=== PATIENT | male | born 1960 | race Caucasian/White ===

== ENCOUNTER → 2020-05-15 11:30 | Outpatient (CLI) | payer MEDICAID, SELFPAY ==
[2020-05-15 12:45] LABS: Chloride 97 mmol/L (98-107)
[2020-05-15 12:46] LABS: Potassium 4.7 mmoL/L (3.5-5.1); Sodium 135 mmol/L (136-145)
[2020-05-15 12:48] LABS: Alanine Aminotransferase 13 U/L (12-78); Alkaline Phosphatase 98 U/L (38-126); Anion Gap 10.7 mEq/L (5-15); Aspartate Amino Transferase 21 U/L (17-59); Bilirubin,Total 0.8 mg/dl (0.2-1.3); Blood Urea Nitrogen 23 mg/dl (9-20); Carbon Dioxide 32 mmol/L (22.0-30.0); Estimated Glomerular Filt Rate 76 ml/min (>60); GFR (African American) 92 ML/MIN (>60)
[2020-05-15 12:49] LABS: Albumin Level 3.4 g/dl (3.5-5.0); Albumin/Globulin Ratio 1.1 (1.1-1.8); Calcium 9.3 mg/dl (8.4-10.2); Cholesterol 165 mg/dl (140-200); Globulin 3.1 g/dL (1.3-3.2); Glucose 115 mg/dl (74-100); HDL Cholesterol 33 mg/dl (40-60); Total Protein,Serum 6.5 g/dl (6.3-8.2); Triglycerides 156 mg/dl (30-150); VLDL Cholesterol 31 mg/dL (0-40)
[2020-05-15 13:00] LABS: Direct LDL Cholesterol 111.47 mg/dL (100-129)
[2020-05-15 13:04] LABS: Basophils # 0.1 K/mm3 (0-0.2); Basophils % 0.6 % (0.1-2.0); Eosinophils # 0.3 K/mm3 (0.0-0.4); Eosinophils % 2.5 % (0.1-12.0); Hematocrit 49.6 % (42.0-52.0); Hemoglobin 15.4 g/dL (14.1-18.0); Lymphocytes # 1.6 K/mm3 (0.7-4.5); Lymphocytes % 15.1 % (10-50); Mean Corpuscular HGB Conc 31.1 g/dL (31.8-35.4); Mean Corpuscular Hemoglobin 26.5 pg (27.0-31.2); Monocytes # 0.6 K/mm3 (0.1-1.0); Monocytes % 5.9 % (1.7-9.3); Neutrophils % 75.9 % (37.0-80.0); Platelet Count 304 K/mm3 (142-424); Red Blood Count 5.83 M/mm3 (4.60-6.20); Red Cell Distribution Width 16.5 % (11.5-17.5); White Blood Count 10.6 K/mm3 (4.8-10.8)
[2020-05-15 13:08] LABS: T4 (Thyroxine) 10.2 ug/dl (5.53-11.0)
[2020-05-15 13:22] LABS: Thyroid Stimulating Hormone 3.67 uIU/mL (0.465-4.68)
[2020-05-15 13:58] LABS: Hemoglobin A1C 7.1 % (4.0-6.0)
== END ==
PROVIDERS: Visit Provider Nurse Practitioner Family
DX: E11.9 Type 2 diabetes mellitus without complications (principal); I10 Essential (primary) hypertension; E78.5 Hyperlipidemia, unspecified; Z79.84 Long term (current) use of oral hypoglycemic drugs
CPT/HCPCS: 36415; 80053; 80061; 83036; 84436; 84443; 85025

== ENCOUNTER → 2021-03-05 18:46 | Outpatient (CLI) | payer MEDICAID, SELFPAY ==
[2021-03-05 19:42] LABS: Basophils # 0.2 K/mm3 (0-0.2); Basophils % 1.5 % (0.1-2.0); Eosinophils # 0.3 K/mm3 (0.0-0.4); Eosinophils % 2.7 % (0.1-12.0); Hematocrit 48.3 % (42.0-52.0); Hemoglobin 15.7 g/dL (14.1-18.0); Lymphocytes # 1.5 K/mm3 (0.7-4.5); Lymphocytes % 13.9 % (10-50); Mean Corpuscular HGB Conc 32.4 g/dL (31.8-35.4); Mean Corpuscular Volume 86.4 fl (80-94); Mean Platelet Volume 9.4 fl (7.4-10.4); Monocytes # 0.7 K/mm3 (0.1-1.0); Monocytes % 6.3 % (1.7-9.3); Neutrophils # 8.1 K/mm3 (1.8-7.8); Neutrophils % 75.7 % (37.0-80.0); Platelet Count 263 K/mm3 (142-424); Red Blood Count 5.59 M/mm3 (4.60-6.20); Red Cell Distribution Width 16.8 % (11.5-17.5); White Blood Count 10.6 K/mm3 (4.8-10.8)
[2021-03-05 19:51] LABS: Alanine Aminotransferase 14 U/L (12-78); Albumin Level 3.6 g/dl (3.5-5.0); Albumin/Globulin Ratio 1.2 (1.1-1.8); Alkaline Phosphatase 110 U/L (38-126); Anion Gap 15.3 mEq/L (5-15); Aspartate Amino Transferase 19 U/L (17-59); Bilirubin,Total 0.7 mg/dl (0.2-1.3); Blood Urea Nitrogen 24 mg/dl (9-20); Calcium 8.7 mg/dl (8.4-10.2); Carbon Dioxide 31 mmol/L (22.0-30.0); Chloride 97 mmol/L (98-107); Cholesterol 157 mg/dl (140-200); Estimated Glomerular Filt Rate 68 ml/min (>60); GFR (African American) 82 ML/MIN (>60); Glucose 122 mg/dl (74-100); HDL Cholesterol 26 mg/dl (40-60); Potassium 4.3 mmoL/L (3.5-5.1); Sodium 139 mmol/L (136-145); Total Protein,Serum 6.6 g/dl (6.3-8.2); Triglycerides 129 mg/dl (30-150); VLDL Cholesterol 26 mg/dL (0-40)
[2021-03-05 20:02] LABS: Direct LDL Cholesterol 105.99 mg/dL (100-129)
[2021-03-05 20:08] LABS: 25-OH Vitamin D, Total 20.6 ng/mL (30-100)
[2021-03-05 20:11] LABS: T4 (Thyroxine) 9.5 ug/dl (5.53-11.0)
[2021-03-05 20:24] LABS: Hemoglobin A1C 8.1 % (4.0-6.0); Prostate Specific Ag Screen 0.4 ng/ml (0.0-4.0); Thyroid Stimulating Hormone 2.53 uIU/mL (0.465-4.68)
[2021-03-05 20:39] LABS: Microalbumin < 6.000 mg/L (0-16.7)
[2021-03-05 21:18] LABS: Creatinine,Urine Random 64 mg/dL (Not Estab.)
== END ==
PROVIDERS: Visit Provider Nurse Practitioner Family
DX: E11.9 Type 2 diabetes mellitus without complications (principal); Z79.84 Long term (current) use of oral hypoglycemic drugs; E55.9 Vitamin D deficiency, unspecified; Z12.5 Encounter for screening for malignant neoplasm of prostate
CPT/HCPCS: 80053; 80061; 82043; 82306; 82570; 83036; 84436; 84443; 85025; G0103

== ENCOUNTER → 2022-06-06 16:08 | Outpatient (CLI) | payer MEDICAID, SELFPAY ==
[2022-06-06 18:55] LABS: Basophils # 0.1 K/mm3 (0-0.2); Basophils % 0.8 % (0.1-2.0); Eosinophils # 0.3 K/mm3 (0.0-0.4); Eosinophils % 2.5 % (0.1-12.0); Hematocrit 50.4 % (42.0-52.0); Lymphocytes # 1.5 K/mm3 (0.7-4.5); Lymphocytes % 14.8 % (10-50); Mean Corpuscular HGB Conc 31.8 g/dL (31.8-35.4); Mean Corpuscular Hemoglobin 28.4 pg (27.0-31.2); Mean Corpuscular Volume 89.2 fl (80-94); Monocytes # 0.6 K/mm3 (0.1-1.0); Monocytes % 6.1 % (1.7-9.3); Neutrophils # 7.8 K/mm3 (1.8-7.8); Neutrophils % 75.8 % (37.0-80.0); Platelet Count 286 K/mm3 (142-424); Red Blood Count 5.64 M/mm3 (4.60-6.20); Red Cell Distribution Width 16.1 % (11.5-17.5); White Blood Count 10.3 K/mm3 (4.8-10.8)
[2022-06-06 19:15] LABS: Hemoglobin A1C 9.4 % (4.0-6.0)
[2022-06-06 19:30] LABS: Alanine Aminotransferase 19 U/L (12-78); Albumin Level 3.8 g/dl (3.5-5.0); Albumin/Globulin Ratio 1.3 (1.1-1.8); Alkaline Phosphatase 146 U/L (38-126); Anion Gap 16.1 mEq/L (5-15); Aspartate Amino Transferase 26 U/L (17-59); Bilirubin,Total 0.4 mg/dl (0.2-1.3); Blood Urea Nitrogen 28 mg/dl (9-20); Calcium 9.1 mg/dl (8.4-10.2); Carbon Dioxide 32 mmol/L (22.0-30.0); Chloride 93 mmol/L (98-107); Chol/HDL Ratio 5.9 (1-3.5); Cholesterol 159 mg/dl (140-200); Estimated Glomerular Filt Rate 68 ml/min (>60); GFR (African American) 82 ML/MIN (>60); Glucose 160 mg/dl (74-100); HDL Cholesterol 27 mg/dl (40-60); Potassium 4.1 mmoL/L (3.5-5.1); Sodium 137 mmol/L (136-145); Total Protein,Serum 6.8 g/dl (6.3-8.2); Triglycerides 140 mg/dl (30-150); VLDL Cholesterol 28 mg/dL (0-40)
[2022-06-06 19:43] LABS: Direct LDL Cholesterol 102.06 mg/dL (100-129)
[2022-06-06 19:48] LABS: 25-OH Vitamin D, Total 29.9 ng/mL (30-100)
[2022-06-06 20:02] LABS: Prostate Specific Ag Screen 0.3 ng/ml (0.0-4.0); Thyroid Stimulating Hormone 2.02 uIU/mL (0.465-4.68)
== END ==
PROVIDERS: PCP Physician Assistant; Visit Provider Physician Assistant
DX: E11.9 Type 2 diabetes mellitus without complications (principal); E55.9 Vitamin D deficiency, unspecified; Z79.84 Long term (current) use of oral hypoglycemic drugs; Z12.5 Encounter for screening for malignant neoplasm of prostate
CPT/HCPCS: 80053; 80061; 82306; 83036; 84443; 85025; G0103

== ENCOUNTER → 2022-11-04 13:32 | Outpatient (CLI) | payer MEDICAID, SELFPAY ==
[2022-11-04 18:14] LABS: Basophils # 0.1 K/mm3 (0-0.2); Basophils % 0.5 % (0.1-2.0); Eosinophils # 0.3 K/mm3 (0.0-0.4); Eosinophils % 2.8 % (0.1-12.0); Hematocrit 50.7 % (42.0-52.0); Lymphocytes % 18.1 % (10-50); Mean Corpuscular HGB Conc 31.5 g/dL (31.8-35.4); Mean Corpuscular Hemoglobin 26.7 pg (27.0-31.2); Mean Corpuscular Volume 84.7 fl (80-94); Mean Platelet Volume 9.6 fl (7.4-10.4); Monocytes # 0.7 K/mm3 (0.1-1.0); Monocytes % 6.3 % (1.7-9.3); Neutrophils # 7.9 K/mm3 (1.8-7.8); Neutrophils % 72.3 % (37.0-80.0); Platelet Count 298 K/mm3 (142-424); Red Blood Count 5.99 M/mm3 (4.60-6.20); Red Cell Distribution Width 16.2 % (11.5-17.5); White Blood Count 10.9 K/mm3 (4.8-10.8)
[2022-11-04 18:23] LABS: Alanine Aminotransferase 16 U/L (12-78); Albumin Level 3.8 g/dl (3.5-5.0); Albumin/Globulin Ratio 1.3 (1.1-1.8); Alkaline Phosphatase 102 U/L (38-126); Anion Gap 7.7 mEq/L (5-15); Aspartate Amino Transferase 23 U/L (17-59); Bilirubin,Total 0.6 mg/dl (0.2-1.3); Blood Urea Nitrogen 21 mg/dl (9-20); Carbon Dioxide 32 mmol/L (22.0-30.0); Chloride 98 mmol/L (98-107); Chol/HDL Ratio 5.9 (1-3.5); Cholesterol 159 mg/dl (140-200); Estimated Glomerular Filt Rate 68 ml/min (>60); GFR (African American) 82 ML/MIN (>60); Glucose 85 mg/dl (74-100); HDL Cholesterol 27 mg/dl (40-60); Potassium 3.7 mmoL/L (3.5-5.1); Sodium 134 mmol/L (136-145); Total Protein,Serum 6.8 g/dl (6.3-8.2); Triglycerides 149 mg/dl (30-150); VLDL Cholesterol 30 mg/dL (0-40)
[2022-11-04 18:35] LABS: Direct LDL Cholesterol 109.22 mg/dL (100-129)
[2022-11-04 18:39] LABS: 25-OH Vitamin D, Total 38.8 ng/mL (30-100); Hemoglobin A1C 10.2 % (4.0-6.0)
[2022-11-04 18:52] LABS: Thyroid Stimulating Hormone 2.44 uIU/mL (0.465-4.68)
== END ==
PROVIDERS: PCP Physician Assistant; Visit Provider Physician Assistant
DX: E11.9 Type 2 diabetes mellitus without complications (principal); E66.9 Obesity, unspecified; Z68.41 Body mass index [BMI] 40.0-44.9, adult; Z79.84 Long term (current) use of oral hypoglycemic drugs
CPT/HCPCS: 80053; 80061; 82306; 83036; 84443; 85025

== ENCOUNTER 2024-04-20 11:14 | Outpatient (CLI) | payer MEDICAID, SELFPAY ==
[2024-04-20 18:16] LABS: Basophils # 0.1 K/mm3 (0-0.2); Basophils % 0.5 % (0.1-2.0); Eosinophils # 0.3 K/mm3 (0.0-0.4); Eosinophils % 2.8 % (0.1-12.0); Hematocrit 51.8 % (42.0-52.0); Hemoglobin 15.4 g/dL (14.1-18.0); Lymphocytes # 1.7 K/mm3 (0.7-4.5); Lymphocytes % 14.9 % (10-50); Mean Corpuscular HGB Conc 29.6 g/dL (31.8-35.4); Mean Corpuscular Hemoglobin 26.3 pg (27.0-31.2); Mean Corpuscular Volume 88.6 fl (80-94); Mean Platelet Volume 9.4 fl (7.4-10.4); Monocytes # 0.7 K/mm3 (0.1-1.0); Monocytes % 6.1 % (1.7-9.3); Neutrophils # 8.5 K/mm3 (1.8-7.8); Neutrophils % 75.7 % (37.0-80.0); Platelet Count 317 K/mm3 (142-424); Red Blood Count 5.85 M/mm3 (4.60-6.20); Red Cell Distribution Width 16.2 % (11.5-17.5); White Blood Count 11.3 K/mm3 (4.8-10.8)
[2024-04-20 19:06] LABS: Alanine Aminotransferase 23 U/L (12-78); Albumin Level 3.8 g/dl (3.5-5.0); Albumin/Globulin Ratio 1.3 (1.1-1.8); Alkaline Phosphatase 91 U/L (38-126); Aspartate Amino Transferase 24 U/L (17-59); Bilirubin,Total 0.6 mg/dl (0.2-1.3); Blood Urea Nitrogen 25 mg/dl (9-20); Calcium 9.5 mg/dl (8.4-10.2); Chloride 99 mmol/L (98-107); Chol/HDL Ratio 5.6 (1-3.5); Cholesterol 163 mg/dl (140-200); Estimated Glomerular Filt Rate 67 ml/min (>60); GFR (African American) 82 ML/MIN (>60); Glucose 130 mg/dl (74-100); HDL Cholesterol 29 mg/dl (40-60); Sodium 136 mmol/L (136-145); Total Protein,Serum 6.8 g/dl (6.3-8.2); Triglycerides 150 mg/dl (30-150); VLDL Cholesterol 30 mg/dL (0-40)
[2024-04-20 19:11] LABS: Potassium 4.1 mmoL/L (3.5-5.1)
[2024-04-20 19:16] LABS: Creatinine,Urine Random 38 mg/dL (Not Estab.); Hemoglobin A1C 7.7 % (4.0-6.0); Microalbumin < 6.000 mg/L (0-16.7)
[2024-04-20 19:19] LABS: HIV (1&2) Antibody Rapid NONREACTIVE (NONREACTIVE)
[2024-04-20 19:24] LABS: Direct LDL Cholesterol 105.15 mg/dL (100-129)
[2024-04-20 19:36] LABS: Prostate Specific Ag Screen 0.6 ng/ml (0.0-4.0)
[2024-04-20 20:03] LABS: Anion Gap 9.1 mEq/L (5-15); Carbon Dioxide 32 mmol/L (22.0-30.0)
[2024-04-22 10:15] LABS: HCV Ab Non Reactive (Non Reactive)
== END 2024-04-20 23:59 | disposition home or self-care (01) ==
LOC: LAB.DROPOF 04-21 11:15
PROVIDERS: PCP Family Medicine; Visit Provider Family Medicine
DX: L97.929 Non-pressure chronic ulcer of unspecified part of left lower leg with unspecified severity (principal); Z87.891 Personal history of nicotine dependence; E11.40 Type 2 diabetes mellitus with diabetic neuropathy, unspecified; Z99.81 Dependence on supplemental oxygen; E78.2 Mixed hyperlipidemia; I10 Essential (primary) hypertension; E11.59 Type 2 diabetes mellitus with other circulatory complications; I49.9 Cardiac arrhythmia, unspecified; E78.5 Hyperlipidemia, unspecified; E11.8 Type 2 diabetes mellitus with unspecified complications; L03.90 Cellulitis, unspecified; R26.89 Other abnormalities of gait and mobility; Z79.84 Long term (current) use of oral hypoglycemic drugs; Z79.85 Long-term (current) use of injectable non-insulin antidiabetic drugs
CPT/HCPCS: 80053; 80061; 82043; 82570; 83036; 85025; 86803; 87389; G0103

== ENCOUNTER 2025-01-20 12:00 | Outpatient (CLI) | payer MEDICAID, SELFPAY ==
[2025-01-20 18:28] LABS: Basophils # 0.1 K/mm3 (0-0.2); Basophils % 0.5 % (0.1-2.0); Eosinophils # 0.3 Kmm3 (0.0-0.4); Eosinophils % 2.8 % (0.1-12.0); Hematocrit 51.6 % (42.0-52.0); Hemoglobin 14.9 g/dL (14.1-18.0); Immature Granulocytes # 0.03 10^3uL; Immature Granulocytes % 0.3 %; Lymphocytes # 1.7 K/mm3 (0.7-4.5); Lymphocytes % 17.1 % (10-50); Mean Corpuscular HGB Conc 28.9 g/dL (31.8-35.4); Mean Corpuscular Hemoglobin 23.7 pg (27.0-31.2); Mean Corpuscular Volume 82.2 fl (80-94); Mean Platelet Volume 11.8 fl (7.4-10.4); Monocytes # 0.7 K/mm3 (0.1-1.0); Monocytes % 6.9 % (1.7-9.3); Neutrophils % 72.4 % (37.0-80.0); Nucleated Red Blood Cells # 0 10^3/uL; Nucleated Red Blood Cells % 0 %; Platelet Count 291 K/mm3 (142-424); Red Blood Count 6.28 M/mm3 (4.60-6.20); Red Cell Distribution Width 19.6 % (11.5-17.5); Red Cell Distribution Width-SD 54.2 fL; White Blood Count 9.7 K/mm3 (4.8-10.8)
[2025-01-20 19:16] LABS: Alanine Aminotransferase 16 U/L (12-78); Albumin Level 3.9 g/dl (3.5-5.0); Albumin/Globulin Ratio 1.2 (1.1-1.8); Alkaline Phosphatase 94 U/L (38-126); Anion Gap 14.9 mEq/L (5-15); Aspartate Amino Transferase 32 U/L (17-59); Bilirubin,Total 1.1 mg/dl (0.2-1.3); Blood Urea Nitrogen 19 mg/dl (9-20); Calcium 9.8 mg/dl (8.4-10.2); Carbon Dioxide 32 mmol/L (22.0-30.0); Chloride 93 mmol/L (98-107); Chol/HDL Ratio 6.4 (1-3.5); Cholesterol 159 mg/dl (140-200); Estimated Glomerular Filt Rate 85 ml/min (>60); GFR (African American) 103 ML/MIN (>60); Globulin 3.3 g/dL (1.3-3.2); Glucose 126 mg/dl (74-100); HDL Cholesterol 25 mg/dl (40-60); Potassium 4.9 mmoL/L (3.5-5.1); Sodium 135 mmol/L (136-145); Total Protein,Serum 7.2 g/dl (6.3-8.2); Triglycerides 166 mg/dl (30-150); VLDL Cholesterol 33 mg/dL (0-40)
[2025-01-20 19:24] LABS: Hemoglobin A1C 11.2 % (4.0-6.0)
[2025-01-20 19:26] LABS: Direct LDL Cholesterol 99.54 mg/dL (100-129)
--- OUTSIDE RECORDS SUMMARY | 2025-01-21 10:20 | XMS_ITS | Clinical Summary ---
Author Organization [facility] Address [address], [place] [phone] Phone Care Team Providers Care Document Design Specialist Name Role Phone Chanell Tam MD Unavailable Allergies Active Allergy Reactions Criticality Noted Date Comments Cephalexin Hives High 01/25/2020 Penicillins Swelling High Childhood. Medications aspirin 81 mg Oral Tablet, Delayed Release (E.C.) Take by mouth daily. Active Cane [facility] DeviceIndications: Coronary artery disease involving [place] coronary artery of ot[place] heart without angina pectoris,History of DVT (deep vein thrombosis),Primar y osteoarthritis involving multiple joints Wide based Quad cane 1 Device 8 Active Blood-Glucose Meter (FREESTYLE LITE METER) [facility] KitIndications:Typ e 2 diabetes mellitus without complication, without long-term current use of insulin (HCC),Hyperlipidem ia associated with type 2 diabetes mellitus (HCC),Hypertension associated with diabetes (HCC) Check blood sugar two times daily, E11.65 1 Kit 9 Active clotrimazole-betam ethasone (LOTRISONE) Top CreamIndications:Y east dermatitis APPLY TOPICALLY NEEDED 15 g 9 Active ONETOUCH VERIO [facility] StripIndications:T ype 2 diabetes mellitus without complication, without long-term current use of insulin (HCC) 1 Strip by [facility].(Non-Norm g; Combo Route) route daily. 50 Strip 11 9 Active ONETOUCH DELICA PLUS LANCET 33 gauge [facility] MiscIndications:Ty pe 2 diabetes mellitus without complication, without long-term current use of insulin (HCC) 1 Each by [facility].(Non-Norm g; Combo Route) route daily. 50 Each 11 9 Active fluticasone propionate (FLONASE) 50 mcg/actuation Nasl [place], SuspensionIndicati ons:Acute non-recurrent maxillary sinusitis,Seasonal allergic rhinitis, unspecified trigger 2 Sprays by Nasal route daily. 1 Bottle 0 Active hydroCHLOROthiazid e (HYDRODIURIL) 25 mg Oral TabletIndications: Dependent edema TAKE 1 TABLET BY MOUTH DAILY 30 Tab 5 0 Active glimepiride (AMARYL) 4 mg Oral TabletIndications: Type 2 diabetes mellitus without complication, without long-term current use of insulin (HCC) Take 1 Tab by mouth 2 times daily. 180 Tab 0 Active lisinopriL (PRINIVIL;ZESTRIL) 10 mg Oral TabletIndications: Coronary artery disease involving [place] coronary artery of [place] heart without angina pectoris,Essential hypertension Take 1 Tab by mouth daily. 90 Tab 0 Active ertugliflozin (STEGLATRO) 15 mg Oral TabletIndications: Type 2 diabetes mellitus without complication, without long-term current use of insulin (HCC) Take 15 mg by mouth daily. 90 Tab 0 Active atorvastatin (LIPITOR) 40 mg Oral TabletIndications: Hyperlipidemia associated with type 2 diabetes mellitus (HCC) Take 1 Tab by mouth every evening. 90 Tab 0 Active nitroGLYCERIN (NITROSTAT) 0.4 mg SL Tablet, SublingualIndicati ons:Coronary artery disease involving ot[place] coronary artery of [place] heart without angina pectoris Place 1 Tab under the tongue every 5 minutes as needed for Chest pain. 12 Tab 1 0 Active SITagliptin-metFOR MIN (JANUMET XR) 50-1,000 mg Oral Tab, Multiphasic Release 24 hrIndications:Type 2 diabetes mellitus without complication, without long-term current use of insulin (HCC) Take 1 Tab by mouth 2 times daily. 180 Tab 0 Active omeprazole (PRILOSEC) 40 mg Oral Capsule, Delayed Release(E.C.)Indic ations:Gastroesoph ageal reflux disease without esophagitis Take 1 Cap by mouth daily. 90 Cap 0 Active torsemide (DEMADEX) 10 mg Oral TabletIndications: Ischemic cardiomyopathy Take 1 Tab by mouth daily. 90 Tab 0 Active buPROPion (WELLBUTRIN XL) 150 mg Oral Tablet Sustained Release 24 hrIndications:Sabina r depressive disorder, recurrent episode, mild Take 1 Tab by mouth every morning. 30 Tab 2 0 Active XARELTO 20 mg Oral TabletIndications: History of atrial fibrillation,Histo ry of DVT (deep vein thrombosis),PAF (paroxysmal atrial fibrillation) ([facility]) TAKE 1 TABLET BY MOUTH DAILY WITH BREAKFAST 30 Tab 3 0 Active montelukast (SINGULAIR) 10 mg Oral TabletIndications: COPD, mild ([facility]) TAKE ONE TABLET BY MOUTH AT BEDTIME 90 Tab 1 Active PROAIR HFA 90 mcg/actuation [place]hl HFA Aerosol InhalerIndications :COPD exacerbation ([facility]) INHALE 2 PUFFS BY MOUTH EVERY 4 HOURS NEEDED FOR WHEEZING 8.5 g 1 Active sotaloL (BETAPACE) 80 mg Oral TabletIndications: PAF (paroxysmal atrial fibrillation) ([facility]) Take 1 Tablet by mouth 2 times daily. 60 Tablet 2 Active Active Problems Patient Care Coordination No te Formatting of this note migh t be different from the original. Wears oxygen at 2 L / min all the time. HCC audit completed by Unique Hallman RN on 05/03/2020. Care gap audit completed by Jenn Barrett RN on 05/22/2020. Upon review, this patient has open gaps for colorectal cancer screening Microalbumin. As of this date, this patient is due Problem Noted Date Diagnosed Date COPD, moderate 03/02/2019 Type 2 diabetes mellitus without complication Hyperlipidemia associated with type 2 diabetes m ellitus 04/10/2017 Seasonal allergic rhinitis 05/23/2016 Gastroesophageal reflux disease without esophagi tis 01/16/2016 PAF (paroxysmal atrial fibrillation) 01/16/2016 Obesity, morbid, BMI 50 or higher 12/18/2015 Primary osteoarthritis involving multiple joints 10/11/2015 Hypertension associated with diabetes 09/21/2015 CAD (coronary artery disease), ot[place] coronary a rtery 08/25/2014 Cardiomyopathy 08/25/2014 History of DVT (deep vein thrombosis) 08/25/2014 Resolved Problems Problem Noted Date Diagnosed Date Resolved Date Tobacco abuse 02/02/2018 05/01/2018 Seasonal allergies 06/21/2015 6 DM (diabetes mellitus) 08/26/201401/15 HTN (hypertension) 08/25/2014 6 Immunizations Immunization Administration Dates Next Due Influenza Vaccine Quadrivalent PF 04/29/2017,,06/14/2015 Influenza Virus Vaccine Quad rivalant, Flublok 06/11/2019,05/01/2018 Pneumococcal Conjugate Vaccine 13 Valent 017 Pneumococcal Polysaccharide 23 Valent 02/02/2018 Surgical History Surgery Date Site/Laterality Comments CARDIAC SURGERY 12/2013 CABG x 3 Medical History Medical History Date Comments COPD (chronic obstructive pulmonary disease) ([facility] C) Asthma Hypertension Unspecified sleep apnea CAD (coronary artery disease) Hyperlipidemia Heartburn Osteoarthritis Diabetes mellitus (HCC) Atrial fibrillation (HCC) Family History * Patient is adopted Relation Name Status Comments Father Other Mother Other Social History Tobacco Use Types Packs/Day Years Used Date Smoking Tobacco: Some Days Cigarettes Smokeless Tobacco: Never Tobacco Cessation:Counseling Given: Yes Alcohol Use Standard Drinks/Week Comments Yes 0 (1 standard drink = 0.6 oz pur e alcohol) AUDIT-C Answer Date Recorded Frequency of Alcohol Consumption Monthly or less 03/02/2020 Average Number of Drinks 1 or 2 020 Frequency of Binge Drinking Never 12/2019 PHQ-2 Answer Date Recorded PHQ-2 Score 4 03/02/2020 Sexually Active Control Partners Comments Not Currently Female Sex and Gender Information Value Date Recorded Sex Assigned at Not on file Legal Sex Male 11:26 AM EST Gender Identity Not on file Sexual Orientation Not on file Obstetrics History Last Filed Vital Signs Vital Sign Reading Time Taken Comments Blood Pressure 104/70 03/02/2020 1:18 PM EDT Pulse 70 03/02/2020 1:18 PM EDT Temperature 36.6 C (97.9 F) 03/02/2020 1:18 PM EDT Respiratory Rate 20 03/02/2020 1:18 PM EDT Oxygen Saturation 96% 03/02/2020 1:18 PM EDT Inhaled Oxygen Concentration - - Weight 133.4 kg (294 lb) 03/02/2020 1:18 PM EDT Height 167.6 cm (5' 6 ) 03/02/2020 1:18 PM EDT Body Mass Index 47.45 03/02/2020 1:18 PM EDT Plan of Treatment Health Maintenance Due Date Last Done Comments DTaP/TDaP/Td (1 - Tdap) 01/26/1979 Cologuard 01/26/2005 Colon Cancer Screening 01/26/2005 Colonoscopy 01/26/2005 FIT 01/26/2005 Sigmoidoscopy 01/26/2005 Virtual Colonography 01/26/2005 Zoster (1 of 2) 01/26/2010 Kidney Health: uACR 11/24/2019 11/23/2018, 02/06/2018, 04/10/2017, Additional history exists RSV or 60+ (1 - Risk 60-74 years 1-dose series) 2020 Kidney Health: eGFR 07/22/2020 07/22/2019, 11/23/2018, 02/06/2018, Additional history exists Lipids 07/22/2020 07/22/2019, 10/27, 08/26/2017, Additional history exists Hemoglobin A1c 09/02/2020 03/02/2020, 06/28, 11/23/2018, Additional history exists Annual Wellness Exam 09/27/2020 09/28/2019, 02/02/2018, 11/07/2016 (Previously completed), Additional history exists Diabetic Eye Exam 09/27/2021 09/28/2019 Pneumococcal Vaccine 50+ (3 of 3 - PCV20 or PCV21) 02/02/2023 02/02/2018, 04/29/2017 COVID-19 Vaccine ( - season) 2024 Influenza Vaccine (Season Ended) 2025 06/11/2019, 05/01/2018, 05/01/2018, Additional history exists Hepatitis C Screening Completed 11/07/2016 Hepatitis B Vaccine Aged Out No longe r eligible based on patient's age to complete this topic Meningococcal B Vaccine Aged Out No l onger eligible based on patient's age to complete this topic Goals Goal Patient Goal Type Associated Problems Recent Progress Patient-Stated? Author Blood Pressure < 140/90 Blood Pressure 104/70(2019 1:18 PM EDT) No Ann-Marie Diehl RMA BMI (Calculated) < 30 General 47.6(03/02/20 20 1:18 PM EDT) No Ann-Marie Diehl RMA Eat better, exercise, reach an ideal body weight General No Estephanie Charles RMA Bring all medicines in the original pharmacy bottle to all doctor visits Lifestyle On track( 016 1:58 PM EDT) No Haley Bedoya, RN Note: Pt vu Check fasting glucose daily and document Lifestyle On track( 016 1:58 PM EDT) No Haley Bedoya RN Note: Pt vu Stay Tobacco Free Lifestyle No Estephanie Charles RMA HEMOGLOBIN A1C < 7.0 Result Component 8.1( 9 11:51 AM EST) No Ann-Marie Diehl RMA Procedures Procedure Name Priority Date/Time Associated Diagnosis Comments COMPREHENSIVE METABOLIC PANEL Routine 07/22/2019 11:51 AM EST Type 2 diabetes mellitus without complication, without long-term current use of insulin (HCC) LIPID PANEL REFLEX Routine 07/22/2019 11 :51 AM EST Hyperlipidemia associated with type 2 diabetes mellitus (HCC) HEMOGLOBIN A1C Routine 07/22/2019 11:51 AM EST Type 2 diabetes mellitus without complication, without long-term current use of insulin (HCC) MICROALBUMIN/CREATINI NE RATIO URINE Routine 11/23/2018 10:01 AM EDT Type 2 diabetes mellitus without complication, without long-term current use of insulin (HCC) HCV ANTIBODY SCREEN W/ REFLEX Routine 11/07/2016 11:03 AM EDT Cardiomyopathy, unspecified type (HCC) Essential hypertension Obesity, morbid, BMI 50 or higher (HCC) Coronary artery disease involving [place] coronary artery of [place] heart without angina pectoris Hyperlipidemia, unspecified hyperlipidemia type from Last 3 Months or Most Recently Relevant to Health Maintenance Results * (ABNORMAL) LIPID PANEL REFLEX (07/22/2019 11:51 AM EST) Cholesterol 153 <=200 mg/dL 07/22/2019 2:51 PM EST [facility] Comment: < 200 Desirable 200 - 239 Borderline High >= 240 High Triglyceride 95 <=150 mg/dL 07/22/2019 2:51 PM EST [facility] [employer] [facility] Comment: < 150 Normal 150 - 199 Borderline High 200 - 499 High >= 500 Very High HDL 35(L) >=40 mg/dL 07/22/2019 2:51 PM EST [facility] [employer] [facility] Comment: > 60 Optimal 40 - 60 Acceptable < 40 Low LDL Calculated 99 <=100 mg/dL 07/22/2019 2:51 PM EST [facility] [employer], [facility] Non-HDL-C Calculated 118 <=129 mg/dL 07/22/2019 2:51 PM EST [facility] [employer] [facility] Comment: <130 Desirable 130-159 Above Desirable 160-189 Borderline High 190-219 High >= 220 Very High Fasting Specimen? Yes None 019 2:51 PM EST [facility] [employer] [facility] Blood Venipuncture / Unknown 07/22/2019 11:51 AM EST 07/22/2019 11:51 AM EST us Shantel Watson SAW MAN CHEMISTRY ORDERABLES Fin al Result [facility] [employer] [facility] [address] [facility] [address] , [place] [address] * (ABNORMAL) HEMOGLOBIN A1C (07/22/2019 11:51 AM EST) Hgb A1C 8.1(H) 4.2 - 5.6 % 07/22/2019 2:37 PM EST [facility] [employer] [facility] Est. Avg Glucose 186 mg/dL 07/22/2019 2:37 PM EST [facility] [employer] [facility] Blood Venipuncture / Unknown 07/22/2019 11:51 AM EST 07/22/2019 11:51 AM EST Narrative [facility] [employer] [facility] - 07/22/2019 2:37 PM EST REFERENCE RANGE: Normal: 4.0-5.6% Pre-diabetes: 5.7-6.4% Provisional diagnosis of diabetes: >6.4% Hgb F>10% and anything which shortens red cell survival, such as hemolytic anemia, or unstable hemoglobin variants such as HbSS, HbSC, or HbCC, will lower the HbA1c value associated with a given level of glycemic control. us Shantel Watson APRN CHEMISTRY ORDERABLES Fin al Result [facility] [address] [facility] [address] , [place] [address] * (ABNORMAL) COMPREHENSIVE METABOLIC PANEL (07/22/2019 11:51 AM EST) Sodium 142 136 - 145 mmol/L 07/22/2019 2:51 PM EST [facility] Potassium 3.9 3.5 - 5.0 mmol/L 07/22/2019 2:51 PM EST [facility] Chloride 99 98 - 107 mmol/L 07/22/2019 2:51 PM EST [facility] Total CO2 30(H) 22 - 29 mmol/L 07/22/2019 2:51 PM EST [facility] Anion Gap 13 7 - 16 mmol/L 07/22/2019 2:51 PM EST [facility] Calcium 9.3 8.6 - 10.4 mg/dL 07/22/2019 2:51 PM EST [facility] Glucose Lvl 111(H) 74 - 100 mg/dL 07/22/2019 2:51 PM EST [facility] BUN 15 6 - 20 mg/dL 07/22/2019 2:51 PM EST [facility] Creatinine 0.90 0.67 - 1.30 mg/dL 07/22/2019 2:51 PM EST [facility] Albumin 3.7 3.5 - 5.2 gm/dL 07/22/2019 2:51 PM EST [facility] Total Protein 7.3 6.4 - 8.3 gm/dL 07/22/2019 2:51 PM EST [facility] Bili Total 0.4 0.1 - 1.4 mg/dL 07/22/2019 2:51 PM EST [facility] ALT 14 <=41 IU/L 07/22/2019 2:51 PM EST [facility] AST 16 <=40 IU/L 07/22/2019 2:51 PM EST [facility] Alk Phos 90 40 - 129 IU/L 07/22/2019 2:51 PM EST [facility] GFR Afr Am 108 >=60 mL/min/1.7 3 m2 07/22/2019 2:51 PM EST [facility] GFR Non Afr Am 93 >=60 mL/min/1.7 3 m2 07/22/2019 2:51 PM EST [facility] Comment: This estimated GFR was calculated using CKD-EPI equation which is modified based on ethnicity for Non Americans and Americans. Both results are reported since it is not always possible to determine the patient's ethnicity. This equation should only be used for individuals 18 and older. It has not been validated for use with the elderly (>70 years), women, or in some racial or ethnic subgroups, such as Hispanics. The equation will be less accurate in people with differences in nutritional status or muscle mass. Blood Venipuncture / Unknown 07/22/2019 11:51 AM EST 07/22/2019 11:51 AM EST us Shatnel Watson APRN CHEMISTRY ORDERABLES Fin al Result [facility] [employer] [facility] [address] [facility] [address] , [place] [address] [facility] [address] [place] [address] * MICROALBUMIN/CREATININE RATIO URINE (11/23/2018 10:01 AM EDT) Urine Microalb <12.0 mg/L 11/23/2018 2:17 PM EDT [facility] [employer] [facility] Urine Creatinine 18.9 mg/dL 11/24/19 19 2:17 PM EDT [facility] [employer] Ur Microalb/Creat 0 - 30 mg/g 11/23/2018 2:17 PM EDT [employer] Comment: Because the albumin level is below the level of detection in this urine specimen, the laboratory is unable to calculate a reliable albumin/creatinine ratio. Microalbuminuria is unlikely if the urine albumin concentration is less than 20- 30 mg/L in a random specimen. Urine STRUCTURE OF URINARY TRACT PROPER / Unknown 11/23/2018 10:01 AM EDT 11/23/2018 10:01 AM EDT us Dedra Harris APRN URINE ORDERABLES Final Result [facility] [employer] [employer] [address], [place] [address] * HEPATITIS C ANTIBODY - SCREENING (11/07/2016 11:03 AM EDT) Hep C Ab Negative Negative [facility] Blood specimen (specimen) UPPER LIMB STRUCTURE / Unknown 11/07/2016 11:03 AM EDT 11/07/2016 3:16 PM EDT us Iveth Guy MD HEMATOLOGY ORDERABLES Final Res ult [facility] [address] [place] [address] from Last 3 Months or Most Recently Relevant to Health Maintenance Insurance [employer] [place] [id number] [place] [employer] [place] [id number] [place] Care Teams Document Design Specialist Relationship Specialty Start Date End Date Chanell Tam MD [address] [place] [address] [place] [address] Consulting Physician Internal Medicine - Clinical Cardiac Electrophysiology 09/05/17
== END 2025-01-20 23:59 | disposition home or self-care (01) ==
LOC: LAB.DROPOF 01-21 10:15
PROVIDERS: PCP Family Medicine; Visit Provider Family Medicine
DX: E11.9 Type 2 diabetes mellitus without complications (principal); L03.90 Cellulitis, unspecified
CPT/HCPCS: 80053; 80061; 83036; 85025

== ENCOUNTER 2025-06-09 09:09 | Outpatient (CLI) | payer MEDICARE, MEDICAID, SELFPAY ==
[2025-06-09 20:11] LABS: Hematocrit 50.3 % (42.0-52.0); Hemoglobin 14.7 g/dL (14.1-18.0); Immature Granulocytes % 0.3 %; Mean Corpuscular HGB Conc 29.2 g/dL (31.8-35.4); Mean Corpuscular Hemoglobin 24.7 pg (27.0-31.2); Mean Corpuscular Volume 84.4 fl (80-94); Nucleated Red Blood Cells % 0 %; Platelet Count 244 K/mm3 (142-424); Red Blood Count 5.96 M/mm3 (4.60-6.20); Red Cell Distribution Width-SD 53.3 fL; White Blood Count 9.7 K/mm3 (4.8-10.8)
[2025-06-09 20:45] LABS: Alanine Aminotransferase 17 U/L (12-78); Albumin Level 3.8 g/dl (3.5-5.0); Albumin/Globulin Ratio 1.2 (1.1-1.8); Alkaline Phosphatase 132 U/L (38-126); Anion Gap 11.2 mEq/L (5-15); Aspartate Amino Transferase 22 U/L (17-59); Bilirubin,Total 0.7 mg/dl (0.2-1.3); Blood Urea Nitrogen 21 mg/dl (9-20); Calcium 9.3 mg/dl (8.4-10.2); Carbon Dioxide 33 mmol/L (22.0-30.0); Chloride 95 mmol/L (98-107); Cholesterol 156 mg/dl (140-200); Creatinine,Serum 1.00 mg/dl (0.66-1.25); Estimated Glomerular Filt Rate 75 ml/min (>60); GFR (African American) 91 ML/MIN (>60); Globulin 3.1 g/dL (1.3-3.2); Glucose 133 mg/dl (74-100); HDL Cholesterol 29 mg/dl (40-60); Potassium 4.2 mmoL/L (3.5-5.1); Sodium 135 mmol/L (136-145); Total Protein,Serum 6.9 g/dl (6.3-8.2); Triglycerides 175 mg/dl (30-150)
[2025-06-09 20:52] LABS: Hemoglobin A1C 9.0 % (4.0-6.0)
== END 2025-06-09 23:59 ==
LOC: LAB.DROPOF 06-13 09:09
PROVIDERS: PCP Family Medicine; Visit Provider Family Medicine
DX: E11.59 Type 2 diabetes mellitus with other circulatory complications (principal); J41.8 Mixed simple and mucopurulent chronic bronchitis
CPT/HCPCS: 80053; 80061; 83036; 85025